=== PATIENT | male | born 1935 | race Caucasian/White ===

== ENCOUNTER 2022-04-03 15:30 | Emergency (ER) | payer MEDICAID ==
[~2022-04-03] VITALS: Ht 162.6 cm; Wt 60.8 kg
--- NOTE | 2022-04-03 15:59 | NUR ---
CODE STROKE INITIATED PER ERMD.
--- NOTE | 2022-04-03 16:23 | NUR ---
Pt placed on monitor to rajeev Adame
[2022-04-03 16:34] LABS: BASOPHILS % (AUTO) 0.5 % (0.0-2.0); EOSINOPHILS # (AUTO) 0.1 K/uL (0-0.4); EOSINOPHILS % (AUTO) 0.7 % (0.0-4.0); HEMATOCRIT 45.2 % (36-52); HEMOGLOBIN 15.1 g/dL (12.0-18.0); LYMPHOCYTES # (AUTO) 2.4 K/uL (2.0-11.5); LYMPHOCYTES % (AUTO) 24.8 % (20.5-51.1); MEAN CORPUSCULAR HEMOGLOBIN 32 pg (27-31); MEAN CORPUSCULAR HGB CONC 33 g/dL (33-37); MEAN CORPUSCULAR VOLUME 95.7 fL (80-94); MONOCYTES # (AUTO) 0.7 K/uL (0.8-1.0); MONOCYTES % (AUTO) 7.3 % (1.7-9.3); NEUTROPHILS # (AUTO) 6.5 K/uL (1.8-7.7); NEUTROPHILS % (AUTO) 66.7 % (42.2-75.2); PLATELET COUNT (AUTO) 283 K/uL (140-450); RED BLOOD CELL COUNT(AUTO) 4.72 MIL/uL (4.20-6.10); RED CELL DISTRIBUTION WIDTH 14.3 % (11.6-13.7); WHITE BLOOD COUNT (AUTO) 9.8 K/uL (4.8-10.8)
[2022-04-03 16:46] LABS: PROTHROMBIN TIME 9.9 secs (10.8-13.4)
[2022-04-03 16:52] LABS: ALBUMIN 3.5 g/dL (3.4-5.0); ANION GAP 13.2 (8-16); ASPARTATE AMINOTRANSFERASE 36 U/L (15-37); CARBON DIOXIDE 27.5 mmol/L (21-32); CHLORIDE 105 mmol/L (98-107); GLUCOSE 109 mg/dL (74-106); POTASSIUM 3.7 mmol/L (3.5-5.1); SODIUM SERUM 142 mmol/L (136-145); TOTAL BILIRUBIN 0.4 mg/dL (0.0-1.0); UREA NITROGEN, BLOOD 26 mg/dL (7-18)
--- NOTE | 2022-04-03 17:05 | NUR ---
TELE NEURO CONSULT REQUEST SENT - CONNECT ID [id number]
--- NOTE | 2022-04-03 17:06 | NUR ---
Giancarlo correa in [facility] - 04/03/22 at 1707 by DONNA VIDAL
--- NOTE | 2022-04-03 19:08 | NUR ---
URINE COLLECTED AND WALKED TO THE LAB.
[2022-04-03 19:13] LABS: APPEARANCE,URINE CLEAR (CLEAR); BILIRUBIN,URINE NEGATIVE (NEGATIVE); BLOOD, URINE TRACE-I (NEGATIVE); COLOR,URINE YELLOW (YELLOW); LEUKOCYTE ESTERASE ,URINE NEGATIVE (NEGATIVE); NITRITE, URINE NEGATIVE (NEGATIVE); UGLUCOSE NEGATIVE (NEGATIVE)
--- NOTE | 2022-04-03 19:15 | NUR ---
86/M BIB FAMILY WITH C/O HEADACHE SINCE YESTERDAY. PER FAMILY PATIENT HAS NOT BEEN ANSWERING QUESTIONS APPROPRIATELY, STATING HE WAS NOT ABLE TO RECOGNIZE FAMILY AND WOKE UP CRYING TODAY. UPON ARRIVAL PATIENT IS SPEAKING CLEAR BUT CONFUSED WITH ANSWERS. PATIENT MOVING ALL EXTREMITIES APPROPRIATELY.
[2022-04-03 19:29] LABS: BARBITURATE, URINE NEGATIVE ng/ml (NEG <=200); BENZODIAZEPINE, URINE NEGATIVE ng/mL (NEG <=200); CANNABINOID, URINE NEGATIVE ng/mL (NEG <=50); COCAINE, URINE NEGATIVE ng/mL (NEG <=300); OPIATE, URINE NEGATIVE ng/mL (NEG <=2000); PHENCYCLIDINE SCREEN,URINE NEGATIVE ng/mL (NEG <=25); RBC,URINE 0-5 /HPF (0-5); WBC,URINE 0-5 /HPF (0-5)
[2022-04-03 19:30] LABS: OTHER CASTS, URINE None Seen /LPF (None Seen)
--- NOTE | 2022-04-03 19:45 | NUR ---
ASSISTED PATIENT TO USE URINAL AND REPOSITIONED. BED LOW AND LOCKED. ALL NEEDS MET
--- NOTE | 2022-04-03 20:00 | NUR ---
RECEIVED PATIENT AAO X0. PATIENT UNABLE TO STATE NAME AND STILL DID NOT RECOGNIZE ANY OF FAMILY MEMBERS. MD AWARE. MD CURRENTLY TALKING TO DAUGHTER AND UPDATING ON PATIENT STATUS AND RESULTS.
--- NOTE | 2022-04-03 20:30 | NUR ---
ERMD AT BEDSIDE
--- NOTE | 2022-04-03 21:30 | NUR ---
Patient being evaluated by physician at bedside.
--- NOTE | 2022-04-03 21:30 | NUR ---
MD CURRENTLY TALKING TO DAUGHTER AND UPDATING ON PATIENT STATUS AND RESULTS. MD RECOMMENDING TRANSFER OF PATIETN TO ANOTHER FACILITY FOR HIGHER LEVEL OF CARE TO FMAILY.
--- NOTE | 2022-04-03 22:25 | NUR ---
Note sunny in EDM - 04/04/22 at 0320 by ALYSSA STATED PATIENT WAS PULLING AT IV. AREA BLEEDING WITH A SMALL SKIN TEAR CAUSED BY PATIENT. D/C THE IV AT THIS TIME. PLACED AN NONADHERENT DRESSING AND COVERED IT.
--- NOTE | 2022-04-03 22:30 | NUR ---
INITIATED IV 22G LEFT HAND. INTACT. ALL NEEDS MET
--- NOTE | 2022-04-03 23:00 | NUR ---
NO CHANGE IN PATIENT STATUS. PATIENT SITTING IN BED WITH SON AT BEDSIDE. PATIENT UNABLE TO ANSWER QUESTIONS. PATIENT ON MONITOR, VSS. BED LOW AND LOCKED. OLLIE SIDE RAILS FOR SAFETY. ALL NEEDS MET. MD AWARE.
--- NOTE | 2022-04-04 | NUR ---
ASSISTED PATIENT TO USE GET OUT OF BED AND USE URINAL AND REPOSITIONED IN BED. BED LOW AND LOCKED. ALL NEEDS MET
--- NOTE | 2022-04-04 00:22 | NUR ---
SON AT BEDSIDE
--- NOTE | 2022-04-04 00:24 | NUR ---
PATIENT IS AAOX0. PATIENT CONFUSED AND UNABLE TO STATE NAME AT THIS TIME. JUST KEEPS REPEATING "IM FINE, IM NOT IN PAIN. I JUST WANT TO GO HOME"
--- NOTE | 2022-04-04 01:35 | NUR ---
REPORT GIVEN TO CHARGE NURSE DWIGHT COTTO AT [facility].
--- NOTE | 2022-04-04 01:35 | NUR ---
Patient to be transferred to [facility]. Is being transferred due to HIGHER LEVEL OF CARE. Receiving facility has accepting physician and available space. ER physician has signed transfer form. Patient or responsible alliance party has agreed to transfer and signed form. Patient belongings inventoried and will be sent with patient. Copy of nursing notes, lab reports, EKG, Physicians Orders and X-rays to be sent with patient. Report called to DWIGHT COTTO at receiving facility. [facility] ambulance service has been called for transfer. ETA is 30 MIN.
[2022-04-04 01:50] VITALS: BP 124/58
--- NOTE | 2022-04-04 01:50 | NUR ---
Chart checked and completed.
--- NOTE | 2022-04-04 01:50 | NUR ---
[facility] AT BEDSIDE
== END 2022-04-04 01:50 | disposition short-term general hospital (02) ==
LOC: MED 15:30
DX: I63.549 Cerebral infarction due to unspecified occlusion or stenosis of unspecified cerebellar artery (principal); Z20.822 Contact with and (suspected) exposure to COVID-19
CPT/HCPCS: 36415; 70450; 70496; 70498; 71045; 80053; 80305; 81001; 83880; 84484; 85025; 85610; 85730; 86886; 86900; 86901; 87426; 93005; 99291; G0482; Q9967